=== PATIENT | female | born 1990 | race Caucasian/White ===

== ENCOUNTER 2017-09-24 11:05 | Inpatient (IN) | payer OTHER ==
[~2017-09-24] VITALS: Ht 160 cm; Wt 80.3 kg
[2017-09-24] MEDS ORDERED: LABETALOL HCL 200 MG TABLET PO PRN (12:45)
[2017-09-24 13:03] LABS: BASOPHILS % (AUTO) 0.5 % (0.0-2.0); HEMATOCRIT 35.3 % (36-46); HEMOGLOBIN 11.9 g/dL (12.0-16.0); LYMPHOCYTES # (AUTO) 2.1 K/uL (1.0-4.8); LYMPHOCYTES % (AUTO) 25.5 % (22.0-44.0); MEAN CORPUSCULAR HEMOGLOBIN 30.1 pg (26.0-34.0); MEAN CORPUSCULAR HGB CONC 33.8 G/dL (31.0-37.0); MEAN CORPUSCULAR VOLUME 89 fL (80-100); MONOCYTES # (AUTO) 0.5 K/uL (0.1-1.0); MONOCYTES % (AUTO) 6.3 % (2.0-9.0); NEUTROPHILS # (AUTO) 5.6 K/uL (1.8-7.7); NEUTROPHILS % (AUTO) 66.7 % (40.0-70.0); PLATELET COUNT (AUTO)-OB 175 K/uL (150-450); RED BLOOD CELL COUNT(AUTO) 3.96 MIL/uL (4.00-5.20)
[2017-09-24 13:08] LABS: ANION GAP 8 mmol/L (8-16); CALCIUM, TOTAL 8.6 mg/dL (8.8-10.5); CARBON DIOXIDE 26 mmol/L (22-29); CHLORIDE 102 mmol/L (98-107); CREATININE 0.64 mg/dL (0.60-1.30); GLOMERULAR FILTR. RATE CALC > 60 mL/min (>60); GLUCOSE,RANDOM 71 mg/dL (70-110); POTASSIUM 4.8 mmol/L (3.5-5.1); SODIUM SERUM 136 mmol/L (136-145); UREA NITROGEN, BLOOD 11 mg/dL (7-18)
[2017-09-24 13:14] LABS: ALANINE AMINOTRANSFERASE 22 U/L (12-78); ALBUMIN 2.5 g/dL (3.4-5.0); ALKALINE PHOSPHATASE 120 U/L (46-116); ASPARTATE AMINOTRANSFERASE 25 U/L (15-37); BILIRUBIN,TOTAL 0.1 mg/dL (0.1-1.0); TOTAL PROTEIN, SERUM 6.5 g/dL (6.4-8.2); URIC ACID 5.5 mg/dL (2.6-7.2)
[2017-09-24 13:59] LABS: GLUCOMETER DEV NAME(LOC) 4S 8; GLUCOSE,POINT OF CARE 73 MG/DL (70-110)
[2017-09-24] MEDS ORDERED: OXYTOCIN 30 UNITS/LACT RINGERS 500 ML IV ONE (15:07)
[2017-09-24] MEDS ORDERED: RINGERS SOLUTION,LACTATED 1,000 ML IV PRN (15:07)
[2017-09-24] MEDS ORDERED: METHYLERGONOVINE MALEATE 0.2 MG/ML VIAL IM PRN (15:15)
[2017-09-24] MEDS ORDERED: FentaNYL CITRATE-PF 100 MCG/2 ML VIAL IVP PRN (15:15)
[2017-09-24] MEDS ORDERED: LIDOCAINE HCL/PF 1% 30 ML VIAL INJ PRN (15:15)
[2017-09-24] MEDS ORDERED: CITRIC ACID/SODIUM CITRATE 30 ML SOLUTION UDCUP PO PRN (15:15)
[2017-09-24] MEDS ORDERED: METOCLOPRAMIDE HCL 5 MG/ML 2 ML VIAL IVP PRN (15:15)
[2017-09-24] MEDS ORDERED: PREN-134 PO (16:15)
[2017-09-24] MEDS: RINGERS SOLUTION,LACTATED 1,000 ML IV SCH (16:33)
[2017-09-24] MEDS: MISOPROSTOL 25 MCG TABLET VG SCH ×2 (16:34→21:30)
[2017-09-24 17:14] VITALS: BP 151/107
[2017-09-24] MEDS ORDERED: OXYGEN THERAPY IH SCH (20:00)
[2017-09-24] MEDS ORDERED: MAGNESIUM SULFATE 4 GM/WATER 100 ML IV ONE (21:00)
[2017-09-24] MEDS ORDERED: CALCIUM GLUCONATE 100 MG/ML 10 ML IVP PRN (21:00)
[2017-09-24] MEDS ORDERED: HydrALAZINE HCL 20 MG/ML VIAL IVP ONE (21:00)
[2017-09-24] MEDS: MAGNESIUM SULFATE 500 ML IV SCH (22:20)
[2017-09-25] MEDS: RINGERS SOLUTION,LACTATED 1,000 ML IV SCH ×3 (01:32→20:58)
[2017-09-25] MEDS ORDERED: DINOPROSTONE 10 MG VAGINAL SUPPOSITORY VG ONE (02:15)
[2017-09-25 03:13] LABS: GLUCOMETER DEV NAME(LOC) 4S 8; GLUCOSE,POINT OF CARE 76 MG/DL (70-110)
[2017-09-25] MEDS: MAGNESIUM SULFATE 500 ML IV SCH ×2 (08:33→21:05)
[2017-09-25] MEDS ORDERED: OXYTOCIN 30 UNITS/LACT RINGERS 500 ML IV PRN (12:29)
[2017-09-25] MEDS ORDERED: LIDOCAINE HCL/PF 2% 5 ML VIAL ONE (17:26)
[2017-09-25] MEDS ORDERED: ROPIVACAINE HCL/PF 0.2% 100 ML ED ONE (17:27)
[2017-09-25] MEDS ORDERED: ROPIVACAINE HCL/PF 0.2% 100 ML ED PRN (17:50)
[2017-09-25] MEDS ORDERED: DiphenhydrAMINE HCL 50 MG/ML VIAL IVP PRN (18:00)
[2017-09-25] MEDS ORDERED: NALBUPHINE HCL 10 MG/ML VIAL IVP PRN (18:00)
[2017-09-25] MEDS ORDERED: ONDANSETRON HCL 4 MG/2 ML VIAL IVP PRN (18:00)
[2017-09-25 20:23] LABS: GLUCOSE,POINT OF CARE 95 MG/DL (70-110)
[2017-09-25] MEDS ORDERED: AMPICILLIN SODIUM 2 GM/NS 100 ML IV ONE (22:00)
[2017-09-25 22:13] LABS: GLUCOMETER DEV NAME(LOC) 4S 8; GLUCOSE,POINT OF CARE 80 MG/DL (70-110)
[2017-09-26] MEDS ORDERED: ROPIVACAINE HCL/PF 0.2% 100 ML ED ONE (01:34)
[2017-09-26] MEDS ORDERED: AMPICILLIN SODIUM 1 GM/NS 50 ML IV SCH (02:00)
[2017-09-26] MEDS ORDERED: LANOLIN 7 GM OINTMENT TP PRN (06:15)
[2017-09-26] MEDS ORDERED: ACETAMINOPHEN/CODEINE 300-30 MG TABLET PO PRN ×2 (06:15)
[2017-09-26] MEDS ORDERED: BENZOCAINE 20%/MENTHOL 56 GM SPRAY CANISTER TP PRN (06:15)
[2017-09-26] MEDS ORDERED: GLYCERIN/WITCH HAZEL LEAF 40 PADS JAR TP PRN (06:15)
[2017-09-26] MEDS ORDERED: RINGERS SOLUTION,LACTATED 1,000 ML IV ONE (10:59)
[2017-09-26] MEDS: IBUPROFEN 800 MG TABLET PO SCH ×2 (14:23→18:51)
[2017-09-26] MEDS ORDERED: MAGNESIUM SULFATE 1 GM in DEXTROSE 5%-WATER 50 ML IV ONE (19:00)
[2017-09-26] MEDS ORDERED: MAGNESIUM SULFATE 500 ML IV SCH (19:16)
[2017-09-26] MEDS ORDERED: CALCIUM GLUCONATE 100 MG/ML 10 ML IVP PRN (19:30)
[2017-09-26] MEDS: MAGNESIUM HYDROXIDE SUSPENSION 30 ML UDCUP PO SCH (23:05)
[2017-09-27] MEDS: IBUPROFEN 800 MG TABLET PO SCH ×2 (02:03→08:37)
[2017-09-27] MEDS: MAGNESIUM HYDROXIDE SUSPENSION 30 ML UDCUP PO SCH (08:36)
[2017-09-27] MEDS ORDERED: IBUP-2071 PO (10:14)
== END 2017-09-27 12:15 | disposition home or self-care (01) | DRG 775 ==
LOC: OBSVTOIN 11:05 → 4S 11:05 → INTOOBSV 15:45 → OBSVTOIN 15:45 → 4S 17:30
PROVIDERS: ADMIT Obstetrics & Gynecology; ATTEND Obstetrics & Gynecology
PROC: 10E0XZZ Delivery of Products of Conception, External Approach (ICD-10-PCS; principal; 2017-09-26)
PROC: 3E0S3BZ Introduction of Anesthetic Agent into Epidural Space, Percutaneous Approach (ICD-10-PCS; 2017-09-26)
PROC: 00HU33Z Insertion of Infusion Device into Spinal Canal, Percutaneous Approach (ICD-10-PCS; 2017-09-26)
PROC: 0W8NXZZ Division of Female Perineum, External Approach (ICD-10-PCS; 2017-09-26)
PROC: 3E033VJ Introduction of Other Hormone into Peripheral Vein, Percutaneous Approach (ICD-10-PCS; 2017-09-26)
DX: O14.14 Severe pre-eclampsia complicating childbirth (principal); O24.429 Gestational diabetes mellitus in childbirth, unspecified control; Z3A.37 37 weeks gestation of pregnancy; Z37.0 Single live birth
CPT/HCPCS: 83735; 84550; 86850; 86900; 86901; J0290; J0360; J2590; J2795; J3475; J3490; J7060; J7120